=== PATIENT | female | born 1995 | race African-American/Black ===

== ENCOUNTER 2017-03-20 16:20 | Emergency (ER) | payer MEDICAID ==
[2017-03-20 16:22] VITALS: BP 129/84; PULSE 84; RESP 20; TEMP 97.7; O2SAT 98
--- NOTE | 2017-03-20 16:53 | PD ---
Physical Exam Time Seen by Provider: 16:52 Narrative 21yo F c/o severe abd pain started today. Denies fever, vomiting, vag discharge , diarrhea, dysuria. Pain constant. LMP 2 weeks ago. Patient seen in triage. VS reviewed. Patient awaiting bed placement. Data Data Last Documented VS Vital Signs Date Time Temp Pulse Resp B/P Pulse Ox O2 Delivery O2 Flow Rate FiO2 03/20/17 16:22 97.7 84 20 129/84 98 Room Air MDM Supervised Visit with CORBIN: Camille Moncada Mar 20, 2017 16:53
== END 2017-03-20 18:48 | disposition left against medical advice (07) ==
LOC: NED 16:20
DX: R10.9 Unspecified abdominal pain (principal)
CPT/HCPCS: 99281